=== PATIENT | female | born 1980 | race Caucasian/White ===

== ENCOUNTER 2018-07-30 18:37 | Emergency (ER) | payer SELFPAY | END 2018-07-30 19:38 | disposition home or self-care (01) | LOC: ERS 18:37 | DX: J06.9 Acute upper respiratory infection, unspecified (principal); F17.210 Nicotine dependence, cigarettes, uncomplicated; Z71.6 Tobacco abuse counseling | CPT/HCPCS: 87081; 87430; 99406 ==